=== PATIENT | male | born 1950 | race Caucasian/White ===

== ENCOUNTER 2017-06-26 11:54 | Inpatient (IN) | payer MEDICARE, MEDICAID ==
[~2017-06-26] VITALS: Ht 180.3 cm; Wt 98.1 kg
[~2017-06-26 11:54] MED LIST: ALBU8.5H8 BC; DIPH25CA61 PO; GUAI12003 PO; LEVO750T26 PO
[2017-06-26] MEDS ORDERED: SODIUM CHLORIDE FLUSH 10ML SYR IVF ONE (14:00)
[2017-06-26] MEDS ORDERED: CEFTAROLINE 600 MG in SODIUM CHLORIDE 0.9% 100 ML IV ONE (14:00)
[2017-06-26] MEDS ORDERED: ALBUTEROL/IPRATROPIUM 2.5MG/0.5MG, 3 ML NPPB ONE (14:00)
[2017-06-26] MEDS ORDERED: ALBUTEROL/IPRATROPIUM 2.5MG/0.5MG, 3 ML ONE (14:28)
[2017-06-26 14:31] LABS: HEMATOCRIT 43.8 % (39.2-51.8); HEMOGLOBIN 14.1 g/dL (13.7-18.0); WHITE BLOOD COUNT 13.2 x10^3/uL (3.4-10)
[2017-06-26 14:42] LABS: ASPARTATE AMINO TRANSFERASE 21 U/L (15-37); BLOOD UREA NITROGEN 27 mg/dL (7-18)
[2017-06-26] MEDS ORDERED: FUROSEMIDE 20 MG/2 ML IV ONE (15:00)
[2017-06-26] MEDS ORDERED: ENALAPRILAT 1.25 MG/ML, 2ML IV PRN (15:00)
[2017-06-26] MEDS ORDERED: ONDANSETRON 2MG/ML, 2ML IVPush PRN (15:00)
[2017-06-26] MEDS ORDERED: LABETALOL 5MG/ML, 20ML IVPush PRN (15:00)
[2017-06-26] MEDS ORDERED: ACETAMINOPHEN 325 MG TABLET PO PRN (15:00)
[2017-06-26] MEDS ORDERED: DOCUSATE 100 MG CAPSULE PO PRN (15:00)
[2017-06-26] MEDS ORDERED: hydrALAzine 20 MG/ML, 1ML IV PRN (15:00)
[2017-06-26] MEDS ORDERED: POLYETHYLENE GLYCOL 17 GM PACKET PO PRN (15:00)
[2017-06-26] MEDS ORDERED: morphine SULFATE 10 MG/ML, 1ML IVPush PRN (15:00)
[2017-06-26] MEDS ORDERED: VANCOMYCIN PER PHARMACY MC PRN (15:00)
[2017-06-26] MEDS ORDERED: TEMPLATE NON-FORMULARY MED. (Albuterol Sulfate (Proair Hfa) 2 PUFF(S)) BC PRN (15:00)
[2017-06-26 15:30] VITALS: BP 126/77
[2017-06-26 15:38] VITALS: BP 150/107
[2017-06-26] MEDS: NICOTINE 7 MG/24 HR PATCH.TD24 TD SCH (16:00)
[2017-06-26] MEDS ORDERED: PHARMACOKINETIC CONSULTATION MC ONE (16:00)
[2017-06-26] MEDS ORDERED: PHARMACOKINETIC MONITORING MC PRN (16:00)
[2017-06-26] MEDS: PIPERACILLIN/TAZO/PMX 3.375GM 50 ML IV SCH ×2 (16:13→22:01)
[2017-06-26] MEDS ORDERED: VANCOMYCIN 1,600 MG in SODIUM CHLORIDE 0.9% 250 ML IV SCH (16:30)
[2017-06-26] MEDS: NS + 20MEQ KCL 1,000 ML IV SCH (16:59)
[2017-06-26] MEDS ORDERED: ALBUTEROL SULFATE 2.5 MG/3 ML ONE (18:19)
[2017-06-26] MEDS: ALBUTEROL SULFATE 2.5 MG/3 ML NPPB SCH (20:00)
[2017-06-26 20:01] VITALS: BP 132/85
[2017-06-27 01:45] VITALS: BP 129/79
[2017-06-27] MEDS: PIPERACILLIN/TAZO/PMX 3.375GM 50 ML IV SCH ×4 (03:41→21:41)
[2017-06-27] MEDS: NS + 20MEQ KCL 1,000 ML IV SCH (03:42)
[2017-06-27 05:51] LABS: HEMATOCRIT 41.5 % (39.2-51.8); HEMOGLOBIN 13.3 g/dL (13.7-18.0); WHITE BLOOD COUNT 12.5 x10^3/uL (3.4-10)
[2017-06-27 06:03] LABS: BLOOD UREA NITROGEN 29 mg/dL (7-18)
[2017-06-27] MEDS: ALBUTEROL SULFATE 2.5 MG/3 ML NPPB SCH ×3 (07:35→19:49)
[2017-06-27 09:16] VITALS: BP 133/73
[2017-06-27] MEDS: HYDROcodone/APAP 5/325 TABLET PO PRN ×2 (09:22→20:36)
[2017-06-27] MEDS: SENNA/DOCUSATE TABLET PO SCH (09:22)
[2017-06-27] MEDS ORDERED: SODIUM CHLORIDE 0.9% 1,000 ML IV SCH (13:00)
[2017-06-27 13:18] VITALS: BP 139/77
[2017-06-27] MEDS ORDERED: GADOBUTROL 10 MMOL/10 ML PFS ONE (15:13)
[2017-06-27] MEDS: NICOTINE 7 MG/24 HR PATCH.TD24 TD SCH (16:00)
[2017-06-27] MEDS: ENOXAPARIN 40 MG/0.4 ML SQ SCH (16:09)
[2017-06-27 20:15] VITALS: BP 113/67
[2017-06-28 02:15] VITALS: BP 116/80
[2017-06-28] MEDS: PIPERACILLIN/TAZO/PMX 3.375GM 50 ML IV SCH ×4 (03:48→21:35)
[2017-06-28 05:35] LABS: HEMATOCRIT 39.4 % (39.2-51.8); HEMOGLOBIN 12.8 g/dL (13.7-18.0); WHITE BLOOD COUNT 9.9 x10^3/uL (3.4-10)
[2017-06-28 05:59] LABS: BLOOD UREA NITROGEN 23 mg/dL (7-18)
[2017-06-28] MEDS: ALBUTEROL SULFATE 2.5 MG/3 ML NPPB SCH ×2 (07:00→12:45)
[2017-06-28 07:30] VITALS: BP 143/91
[2017-06-28] MEDS: SENNA/DOCUSATE TABLET PO SCH (09:59)
[2017-06-28 13:48] VITALS: BP 146/99
[2017-06-28] MEDS: HYDROcodone/APAP 5/325 TABLET PO PRN ×2 (13:58→23:47)
[2017-06-28] MEDS ORDERED: DIPHENHYDRAMINE 25 MG CAPSULE ONE (14:11)
[2017-06-28] MEDS ORDERED: DIPHENHYDRAMINE 25 MG CAPSULE PO ONE (14:30)
[2017-06-28] MEDS: NICOTINE 7 MG/24 HR PATCH.TD24 TD SCH (16:00)
[2017-06-28] MEDS: ENOXAPARIN 40 MG/0.4 ML SQ SCH (16:18)
[2017-06-28 19:41] VITALS: BP 126/72
[2017-06-29 02:22] VITALS: BP 137/87
[2017-06-29] MEDS: PIPERACILLIN/TAZO/PMX 3.375GM 50 ML IV SCH ×4 (03:59→23:07)
[2017-06-29 05:52] LABS: BLOOD UREA NITROGEN 22 mg/dL (7-18)
[2017-06-29] MEDS: SODIUM CHLORIDE 0.9% 500 ML IV SCH ×4 (08:00→23:00)
[2017-06-29 08:48] VITALS: BP 147/91
[2017-06-29] MEDS ORDERED: ALBUTEROL SULFATE 2.5 MG/3 ML NPPB PRN (09:00)
[2017-06-29] MEDS: SENNA/DOCUSATE TABLET PO SCH (09:00)
[2017-06-29 14:07] VITALS: BP 133/77
[2017-06-29] MEDS: NICOTINE 7 MG/24 HR PATCH.TD24 TD SCH (15:40)
[2017-06-29] MEDS: ENOXAPARIN 40 MG/0.4 ML SQ SCH (15:41)
[2017-06-29 20:30] VITALS: BP 124/79
[2017-06-29] MEDS: HYDROcodone/APAP 5/325 TABLET PO PRN (22:48)
[2017-06-30 03:30] VITALS: BP 148/82
[2017-06-30] MEDS: SODIUM CHLORIDE 0.9% 500 ML IV SCH ×2 (04:00→09:00)
[2017-06-30] MEDS: PIPERACILLIN/TAZO/PMX 3.375GM 50 ML IV SCH ×4 (04:11→22:23)
[2017-06-30 05:46] LABS: BLOOD UREA NITROGEN 19 mg/dL (7-18)
[2017-06-30 06:36] VITALS: BP 113/78
[2017-06-30] MEDS: SENNA/DOCUSATE TABLET PO SCH (09:00)
[2017-06-30] MEDS: HYDROcodone/APAP 5/325 TABLET PO PRN ×2 (12:46→22:23)
[2017-06-30 12:59] VITALS: BP 137/82
[2017-06-30] MEDS: NICOTINE 7 MG/24 HR PATCH.TD24 TD SCH (16:00)
[2017-06-30] MEDS: ENOXAPARIN 40 MG/0.4 ML SQ SCH (16:09)
[2017-06-30 18:39] VITALS: BP 145/89
[2017-06-30] MEDS ORDERED: POLYETHYLENE GLYCOL 17 GM PACKET PO PRN (20:30)
[2017-06-30] MEDS ORDERED: morphine SULFATE 10 MG/ML, 1ML IVPush PRN (20:30)
[2017-06-30] MEDS ORDERED: hydrALAzine 20 MG/ML, 1ML IV PRN (20:30)
[2017-06-30] MEDS ORDERED: ENALAPRILAT 1.25 MG/ML, 2ML IV PRN (20:30)
[2017-06-30] MEDS ORDERED: DOCUSATE 100 MG CAPSULE PO PRN (20:30)
[2017-06-30] MEDS ORDERED: ACETAMINOPHEN 325 MG TABLET PO PRN (20:30)
[2017-06-30] MEDS ORDERED: LABETALOL 5MG/ML, 20ML IVPush PRN (20:30)
[2017-06-30] MEDS ORDERED: ONDANSETRON 2MG/ML, 2ML IVPush PRN (20:30)
[2017-07-01 01:36] VITALS: BP 119/79
[2017-07-01] MEDS: PIPERACILLIN/TAZO/PMX 3.375GM 50 ML IV SCH ×4 (04:08→22:26)
[2017-07-01 05:55] LABS: BLOOD UREA NITROGEN 21 mg/dL (7-18)
[2017-07-01] MEDS: SENNA/DOCUSATE TABLET PO SCH (08:23)
[2017-07-01 08:58] VITALS: BP 126/72
[2017-07-01 14:43] VITALS: BP 136/79
[2017-07-01] MEDS: ALBUTEROL SULFATE 2.5 MG/3 ML NPPB PRN (15:30)
[2017-07-01] MEDS: NICOTINE 7 MG/24 HR PATCH.TD24 TD SCH (16:00)
[2017-07-01] MEDS: ENOXAPARIN 40 MG/0.4 ML SQ SCH (16:44)
[2017-07-01 19:08] VITALS: BP 130/80
[2017-07-01] MEDS: HYDROcodone/APAP 5/325 TABLET PO PRN (22:27)
[2017-07-02 03:11] VITALS: BP 130/77
[2017-07-02] MEDS: PIPERACILLIN/TAZO/PMX 3.375GM 50 ML IV SCH ×2 (04:51→11:00)
[2017-07-02] MEDS: HYDROcodone/APAP 5/325 TABLET PO PRN (07:02)
[2017-07-02 08:04] VITALS: BP 126/74
[2017-07-02] MEDS: SENNA/DOCUSATE TABLET PO SCH (09:00)
[2017-07-02] MEDS ORDERED: SULF1TAB24 PO (11:01)
[2017-07-02] MEDS: ALBUTEROL SULFATE 2.5 MG/3 ML NPPB PRN (11:38)
== END 2017-07-02 12:16 | disposition home or self-care (01) | DRG 871 ==
LOC: ED 13:57 → EDIP 14:05 → 4NOR 15:31 → DCLOUNGE 07-02 12:10
PROVIDERS: ADMIT Family Medicine; ATTEND Family Medicine
DX: A41.9 Sepsis, unspecified organism (principal); N17.0 Acute kidney failure with tubular necrosis; L03.115 Cellulitis of right lower limb; E44.0 Moderate protein-calorie malnutrition; E86.0 Dehydration; F17.200 Nicotine dependence, unspecified, uncomplicated; I25.10 Atherosclerotic heart disease of native coronary artery without angina pectoris; J44.9 Chronic obstructive pulmonary disease, unspecified; L02.92 Furuncle, unspecified; Z95.5 Presence of coronary angioplasty implant and graft; Z68.30 Body mass index [BMI] 30.0-30.9, adult
CPT/HCPCS: 36415; 80048; 80053; 83605; 85025; 87040; 87070; 87077; 87186; 87205; 94640; A9585; J0712; J1650; J2543; J3370; J3480; J7613; J7620; J1940; J7040; J7050; Q0163

== ENCOUNTER 2017-11-11 20:02 | Inpatient (IN) | payer MEDICARE, MEDICAID ==
[~2017-11-11] VITALS: Ht 180.3 cm; Wt 94.2 kg
[~2017-11-11 20:02] MED LIST changes: +SULF1TAB24 PO
[2017-11-11] MEDS ORDERED: SODIUM CHLORIDE 0.9% 1,000 ML IV ONE (20:15)
[2017-11-11] MEDS ORDERED: ALBUTEROL/IPRATROPIUM 2.5MG/0.5MG, 3 ML ONE ×2 (20:19→20:27)
[2017-11-11] MEDS ORDERED: methylPREDNISolone SOD SUCC 125 MG/2 ML ONE (20:21)
[2017-11-11] MEDS ORDERED: SODIUM CHLORIDE FLUSH 10ML SYR IVF ONE (20:30)
[2017-11-11] MEDS ORDERED: ALBUTEROL/IPRATROPIUM 2.5MG/0.5MG, 3 ML NPPB SCH (20:30)
[2017-11-11] MEDS ORDERED: methylPREDNISolone SOD SUCC 125 MG/2 ML IVP ONE (20:30)
[2017-11-11] MEDS ORDERED: MAGNESIUM SULFATE PMX 2GM/50ML 50 ML IVPB ONE (20:30)
[2017-11-11 20:48] LABS: MEAN CORPUSCULAR HEMOGLOBIN 28.5 pg (27.5-34.5); MEAN CORPUSCULAR HGB CONC 32.4 g/dL (33.2-36.2); PLATELET COUNT 335 x10^3/uL (130-400); RED BLOOD COUNT 4.87 x10^6/uL (4.38-5.82); RED CELL DISTRIBUTION WIDTH 14.9 % (9.4-14.8)
[2017-11-11 20:57] LABS: ALANINE AMINOTRANSFERASE 91 U/L (12-78); ALBUMIN 3.6 g/dL (3.4-5.0); ANION GAP 7 mmol/L (5-15); CALCIUM 9.1 mg/dL (8.5-10.1); CHLORIDE 102 mmol/L (98-107); CREATININE 1.72 mg/dL (0.7-1.3)
[2017-11-11 21:00] LABS: INTERNATIONAL NORMALIZED RATIO 1.03 (0.93-1.1); PROTHROMBIN TIME 10.7 Seconds (9.6-11.5)
[2017-11-11 21:01] LABS: ALKALINE PHOSPHATASE 92 U/L (45-117); BILIRUBIN,TOTAL 0.4 mg/dL (0.2-1.0); TOTAL PROTEIN 8.3 g/dL (6.4-8.2); TROPONIN I 0.068 ng/mL (0.000-0.045)
[2017-11-11] MEDS ORDERED: CEFTRIAXONE PMX 1GM/50ML 50 ML IVPB ONE (21:30)
[2017-11-11] MEDS ORDERED: SODIUM CHLORIDE FLUSH 10ML SYR IVF PRN (21:30)
[2017-11-11] MEDS ORDERED: AZITHROMYCIN 500 MG in SODIUM CHLORIDE 0.9% 250 ML IVPB ONE (21:30)
[2017-11-11 21:35] LABS: BASOPHILS # (AUTO) 0.18 x10^3/uL (0-0.1); BASOPHILS % (AUTO) 1 % (0-1); EOSINOPHILS % (AUTO) 0 % (1-7); LYMPHOCYTES # (AUTO) 1.29 x10^3/uL (1-3.4); LYMPHOCYTES % (AUTO) 5 % (22-44); MD SCAN; MONOCYTES # (AUTO) 2.37 x10^3/uL (0.2-0.8); MONOCYTES % (AUTO) 10 % (2-9); NEUTROPHILS # (AUTO) 20.64 x10^3/uL (1.8-6.8); NEUTROPHILS % (AUTO) 84 % (42-75)
[2017-11-11] MEDS ORDERED: ALBUTEROL 0.5%, 20ML ONE (21:35)
[2017-11-11] MEDS ORDERED: CEFTRIAXONE PMX 1GM/50ML 50 ML ONE (21:48)
[2017-11-11] MEDS ORDERED: GUAIFENESIN/DM 200-20MG, 10ML UDC PO PRN (22:00)
[2017-11-11] MEDS ORDERED: hydrALAzine 20 MG/ML, 1ML IVPush PRN (22:00)
[2017-11-11] MEDS ORDERED: ACETAMINOPHEN 325 MG TABLET PO PRN (22:00)
[2017-11-11] MEDS ORDERED: ONDANSETRON 2MG/ML, 2ML IVPush PRN (22:00)
[2017-11-11] MEDS ORDERED: methylPREDNISolone SOD SUCC 40 MG/ML IVPush SCH (22:00)
[2017-11-11 22:14] LABS: RAPID INFLUENZA A Negative (Negative); RAPID INFLUENZA B Negative (Negative)
[2017-11-11] MEDS: CEFTRIAXONE PMX 1GM/50ML 50 ML IV SCH (22:24)
[2017-11-11] MEDS: ALBUTEROL/IPRATROPIUM 2.5MG/0.5MG, 3 ML NPPB SCH (22:30)
[2017-11-11] MEDS ORDERED: ALBUTEROL/IPRATROPIUM 2.5MG/0.5MG, 3 ML NPPB PRN (22:30)
[2017-11-11] MEDS: AZITHROMYCIN 500 MG in SODIUM CHLORIDE 0.9% 250 ML IV SCH (22:58)
[2017-11-11] MEDS ORDERED: NICOTINE 21 MG/24 HR PATCH.TD24 ONE (23:21)
[2017-11-11] MEDS ORDERED: ENOXAPARIN 40 MG/0.4 ML ONE (23:22)
[2017-11-11] MEDS: NICOTINE 21 MG/24 HR PATCH.TD24 TD SCH (23:25)
[2017-11-11] MEDS: ENOXAPARIN 40 MG/0.4 ML SQ SCH (23:25)
[2017-11-12] MEDS: SODIUM CHLORIDE 0.9% 1,000 ML IV SCH ×2 (02:55→06:34)
[2017-11-12] MEDS ORDERED: ALBUTEROL/IPRATROPIUM 2.5MG/0.5MG, 3 ML ONE (03:02)
[2017-11-12 04:32] LABS: MEAN CORPUSCULAR HEMOGLOBIN 29.2 pg (27.5-34.5); MEAN CORPUSCULAR HGB CONC 32.8 g/dL (33.2-36.2); MEAN CORPUSCULAR VOLUME 89.1 fL (81-97); MEAN PLATELET VOLUME 8.9 fL (7.4-10.4); PLATELET COUNT 321 x10^3/uL (130-400); RED BLOOD COUNT 4.54 x10^6/uL (4.38-5.82); RED CELL DISTRIBUTION WIDTH 15.1 % (9.4-14.8)
[2017-11-12 04:50] LABS: TROPONIN I 0.043 ng/mL (0.000-0.045)
[2017-11-12 04:51] LABS: CHLORIDE 105 mmol/L (98-107)
[2017-11-12 05:00] LABS: ANION GAP 8 mmol/L (5-15); CALCIUM 9.1 mg/dL (8.5-10.1); CREATININE 1.61 mg/dL (0.7-1.3)
[2017-11-12 05:44] LABS: BASOPHILS # (AUTO) 0.05 x10^3/uL (0-0.1); BASOPHILS % (AUTO) 0 % (0-1); EOSINOPHILS % (AUTO) 0 % (1-7); LYMPHOCYTES # (AUTO) 0.49 x10^3/uL (1-3.4); LYMPHOCYTES % (AUTO) 2 % (22-44); MD SCAN; MONOCYTES # (AUTO) 0.51 x10^3/uL (0.2-0.8); MONOCYTES % (AUTO) 2 % (2-9); NEUTROPHILS # (AUTO) 23.19 x10^3/uL (1.8-6.8); NEUTROPHILS % (AUTO) 96 % (42-75)
[2017-11-12 06:17] VITALS: BP 150/100
[2017-11-12] MEDS: ALBUTEROL/IPRATROPIUM 2.5MG/0.5MG, 3 ML NPPB SCH ×5 (07:25→22:30)
[2017-11-12] MEDS: methylPREDNISolone SOD SUCC 125 MG/2 ML IVPush SCH ×3 (11:06→22:12)
[2017-11-12] MEDS ORDERED: POLYETHYLENE GLYCOL 17 GM PACKET PO PRN (14:30)
[2017-11-12] MEDS ORDERED: BISACODYL 10 MG SUPP PR PRN (14:30)
[2017-11-12] MEDS ORDERED: MAGNESIUM CITRATE 300ML ORAL SOL PO PRN ×2 (14:30)
[2017-11-12 20:34] VITALS: BP 163/98
[2017-11-12] MEDS: NICOTINE 21 MG/24 HR PATCH.TD24 TD SCH (22:00)
[2017-11-12] MEDS: CEFTRIAXONE PMX 1GM/50ML 50 ML IV SCH (22:12)
[2017-11-12] MEDS: ENOXAPARIN 40 MG/0.4 ML SQ SCH (22:13)
[2017-11-12] MEDS: AZITHROMYCIN 500 MG in SODIUM CHLORIDE 0.9% 250 ML IV SCH (22:58)
[2017-11-13] MEDS: ALBUTEROL/IPRATROPIUM 2.5MG/0.5MG, 3 ML NPPB SCH ×5 (00:27→19:27)
[2017-11-13 02:46] VITALS: BP 138/90
[2017-11-13] MEDS: methylPREDNISolone SOD SUCC 125 MG/2 ML IVPush SCH ×4 (04:20→22:41)
[2017-11-13 06:04] LABS: BASOPHILS % (AUTO) 0 % (0-1); EOSINOPHILS % (AUTO) 0 % (1-7); LYMPHOCYTES # (AUTO) 0.44 x10^3/uL (1-3.4); LYMPHOCYTES % (AUTO) 3 % (22-44); MD NO; MEAN CORPUSCULAR HEMOGLOBIN 28.6 pg (27.5-34.5); MEAN CORPUSCULAR HGB CONC 32.1 g/dL (33.2-36.2); MEAN CORPUSCULAR VOLUME 89.1 fL (81-97); MEAN PLATELET VOLUME 9.3 fL (7.4-10.4); MONOCYTES # (AUTO) 0.59 x10^3/uL (0.2-0.8); MONOCYTES % (AUTO) 4 % (2-9); NEUTROPHILS # (AUTO) 14.68 x10^3/uL (1.8-6.8); NEUTROPHILS % (AUTO) 93 % (42-75); PLATELET COUNT 287 x10^3/uL (130-400); RED BLOOD COUNT 4.24 x10^6/uL (4.38-5.82); RED CELL DISTRIBUTION WIDTH 15.3 % (9.4-14.8)
[2017-11-13 06:11] LABS: CHLORIDE 103 mmol/L (98-107)
[2017-11-13 06:25] LABS: ALANINE AMINOTRANSFERASE 98 U/L (12-78); ALBUMIN 3.1 g/dL (3.4-5.0); ALKALINE PHOSPHATASE 88 U/L (45-117); ANION GAP 5 mmol/L (5-15); BILIRUBIN,TOTAL 0.2 mg/dL (0.2-1.0); CALCIUM 9.1 mg/dL (8.5-10.1); CREATININE 1.45 mg/dL (0.7-1.3); TOTAL PROTEIN 7.4 g/dL (6.4-8.2)
[2017-11-13 08:18] VITALS: BP 143/97
[2017-11-13 13:32] VITALS: BP 159/98
[2017-11-13 20:00] VITALS: BP 140/70
[2017-11-13] MEDS: NICOTINE 21 MG/24 HR PATCH.TD24 TD SCH (22:00)
[2017-11-13] MEDS: CEFTRIAXONE PMX 1GM/50ML 50 ML IV SCH (22:40)
[2017-11-13] MEDS: ENOXAPARIN 40 MG/0.4 ML SQ SCH (22:41)
[2017-11-13] MEDS: AZITHROMYCIN 500 MG in SODIUM CHLORIDE 0.9% 250 ML IV SCH (23:32)
[2017-11-13] MEDS: TEMAZEPAM 15 MG CAPSULE PO PRN (23:36)
[2017-11-14 02:00] VITALS: BP 140/80
[2017-11-14] MEDS: methylPREDNISolone SOD SUCC 125 MG/2 ML IVPush SCH ×4 (04:59→22:27)
[2017-11-14 07:47] VITALS: BP 152/87
[2017-11-14] MEDS: ALBUTEROL/IPRATROPIUM 2.5MG/0.5MG, 3 ML NPPB SCH ×4 (08:10→20:00)
[2017-11-14 14:30] VITALS: BP 148/87
[2017-11-14] MEDS ORDERED: GADOBUTROL 10 MMOL/10 ML PFS ONE (19:07)
[2017-11-14 20:19] VITALS: BP 144/92
[2017-11-14] MEDS: NICOTINE 21 MG/24 HR PATCH.TD24 TD SCH (22:00)
[2017-11-14] MEDS: AZITHROMYCIN 500 MG in SODIUM CHLORIDE 0.9% 250 ML IV SCH (22:28)
[2017-11-14] MEDS: ENOXAPARIN 40 MG/0.4 ML SQ SCH (22:28)
[2017-11-14] MEDS: TEMAZEPAM 15 MG CAPSULE PO PRN (23:10)
[2017-11-14] MEDS: CEFTRIAXONE 1,000 MG in DEXTROSE 5% 50 ML IV SCH (23:11)
[2017-11-15 01:15] VITALS: BP 128/89
[2017-11-15] MEDS: ALBUTEROL/IPRATROPIUM 2.5MG/0.5MG, 3 ML NPPB SCH ×5 (01:37→20:00)
[2017-11-15] MEDS: methylPREDNISolone SOD SUCC 125 MG/2 ML IVPush SCH ×3 (03:55→16:02)
[2017-11-15 08:30] VITALS: BP 148/93
[2017-11-15 14:30] VITALS: BP 145/82
[2017-11-15 20:53] VITALS: BP 143/89
[2017-11-15] MEDS: NICOTINE 21 MG/24 HR PATCH.TD24 TD SCH (21:07)
[2017-11-15] MEDS: ENOXAPARIN 40 MG/0.4 ML SQ SCH (21:16)
[2017-11-15] MEDS: AZITHROMYCIN 500 MG in SODIUM CHLORIDE 0.9% 250 ML IV SCH (21:16)
[2017-11-15] MEDS: TEMAZEPAM 15 MG CAPSULE PO PRN (22:34)
[2017-11-15] MEDS: CEFTRIAXONE 1,000 MG in DEXTROSE 5% 50 ML IV SCH (22:34)
[2017-11-16 02:42] VITALS: BP 163/81
[2017-11-16] MEDS: ALBUTEROL/IPRATROPIUM 2.5MG/0.5MG, 3 ML NPPB SCH ×5 (08:23→20:14)
[2017-11-16 08:27] VITALS: BP 142/81
[2017-11-16 13:50] VITALS: BP 142/89
[2017-11-16 20:38] VITALS: BP 170/97
[2017-11-16] MEDS: NICOTINE 21 MG/24 HR PATCH.TD24 TD SCH (22:00)
[2017-11-16] MEDS: AZITHROMYCIN 500 MG in SODIUM CHLORIDE 0.9% 250 ML IV SCH (22:28)
[2017-11-16] MEDS: ENOXAPARIN 40 MG/0.4 ML SQ SCH (22:28)
[2017-11-16] MEDS: CEFTRIAXONE 1,000 MG in DEXTROSE 5% 50 ML IV SCH (22:28)
[2017-11-16] MEDS: TEMAZEPAM 15 MG CAPSULE PO PRN (22:28)
[2017-11-17 02:14] VITALS: BP 139/87
[2017-11-17] MEDS ORDERED: FLUT1BLS INH (07:47)
[2017-11-17] MEDS ORDERED: IPRA3AMP NPPB (07:47)
[2017-11-17] MEDS ORDERED: PRED10TA PO (07:47)
[2017-11-17] MEDS ORDERED: AZIT500T5 PO (07:47)
[2017-11-17] MEDS ORDERED: CEFD300C37 PO (07:47)
[2017-11-17] MEDS ORDERED: TIOT18CA INH (07:47)
[2017-11-17] MEDS ORDERED: NICO-487 TD (07:47)
[2017-11-17 08:00] VITALS: BP 138/69
[2017-11-17] MEDS: ALBUTEROL/IPRATROPIUM 2.5MG/0.5MG, 3 ML NPPB SCH ×2 (08:05→11:10)
[2017-11-17] MEDS ORDERED: PNEUMOCOCCAL 23 VACCINE IM-VACC ONE (10:00)
[2017-11-17] MEDS ORDERED: FLU VACC QS2017-18 (36MOS+) UP/PF 0.5 ML IM-VACC ONE (10:30)
== END 2017-11-17 13:15 | disposition home or self-care (01) | DRG 871 ==
LOC: ED 21:37 → SUATTDRO 21:57 → EDIP 22:14 → CCU 11-12 06:02 → 4EST 11-12 20:16
PROVIDERS: ADMIT Internal Medicine; ATTEND Internal Medicine
PROC: 5A09357 Assistance with Respiratory Ventilation, Less than 24 Consecutive Hours, Continuous Positive Airway Pressure (ICD-10-PCS; principal; 2017-11-11)
DX: A41.9 Sepsis, unspecified organism (principal); J18.9 Pneumonia, unspecified organism; J96.01 Acute respiratory failure with hypoxia; I21.A1 Myocardial infarction type 2; I50.41 Acute combined systolic (congestive) and diastolic (congestive) heart failure; N17.0 Acute kidney failure with tubular necrosis; I13.0 Hypertensive heart and chronic kidney disease with heart failure and stage 1 through stage 4 chronic kidney disease, or unspecified chronic kidney disease; J44.1 Chronic obstructive pulmonary disease with (acute) exacerbation; J44.0 Chronic obstructive pulmonary disease with (acute) lower respiratory infection; I24.8 Other forms of acute ischemic heart disease; K75.9 Inflammatory liver disease, unspecified; F17.210 Nicotine dependence, cigarettes, uncomplicated; F12.90 Cannabis use, unspecified, uncomplicated; I25.10 Atherosclerotic heart disease of native coronary artery without angina pectoris; N18.9 Chronic kidney disease, unspecified; Z23 Encounter for immunization; Z71.6 Tobacco abuse counseling
CPT/HCPCS: 36415; 36600; 70553; 71045; 80048; 80053; 82803; 83605; 83735; 83880; 84145; 84484; 85025; 85610; 85730; 87040; 87081; 87400; 90686; 90732; 93005; 93306; 94640; 94644; 94660; 96365; 96367; 96375; A9585; J0456; J0696; J1650; J2405; J7620; J2930; J3475; J7030; J7050; J7512

== ENCOUNTER 2018-04-22 17:16 | Emergency (ER) | payer MEDICARE, MEDICAID ==
[~2018-04-22] VITALS: Ht 180.3 cm; Wt 93.9 kg
[~2018-04-22 17:16] MED LIST changes: +AZIT500T5 PO; +CEFD300C37 PO; +FLUT1BLS INH; +IPRA3AMP NPPB; +NICO-487 TD; +PRED10TA PO; +TIOT18CA INH
[2018-04-22] MEDS ORDERED: ALBUTEROL/IPRATROPIUM 2.5MG/0.5MG, 3 ML NPPB ONE (17:30)
[2018-04-22] MEDS ORDERED: FAMOTIDINE 20 MG TABLET PO ONE (17:30)
[2018-04-22] MEDS ORDERED: DIPHENHYDRAMINE 25 MG CAPSULE PO ONE (17:30)
[2018-04-22 17:48] LABS: BASOPHILS # (AUTO) 0.01 x10^3/uL (0-0.1); BASOPHILS % (AUTO) 0 % (0-1); EOSINOPHILS # (AUTO) 0.14 x10^3/uL (0-0.4); EOSINOPHILS % (AUTO) 1 % (1-7); LYMPHOCYTES # (AUTO) 1.46 x10^3/uL (1-3.4); LYMPHOCYTES % (AUTO) 11 % (22-44); MD NO; MEAN CORPUSCULAR HEMOGLOBIN 28.9 pg (27.5-34.5); MEAN CORPUSCULAR HGB CONC 32.7 g/dL (33.2-36.2); MEAN CORPUSCULAR VOLUME 88.4 fL (81-97); MEAN PLATELET VOLUME 8.4 fL (7.4-10.4); MONOCYTES # (AUTO) 0.58 x10^3/uL (0.2-0.8); MONOCYTES % (AUTO) 4 % (2-9); NEUTROPHILS % (AUTO) 84 % (42-75); PLATELET COUNT 333 x10^3/uL (130-400); RED BLOOD COUNT 5.36 x10^6/uL (4.38-5.82); RED CELL DISTRIBUTION WIDTH 17.3 % (9.4-14.8)
[2018-04-22] MEDS ORDERED: ALBUTEROL/IPRATROPIUM 2.5MG/0.5MG, 3 ML ONE (17:57)
[2018-04-22 17:58] LABS: ALBUMIN 3.8 g/dL (3.4-5.0); ANION GAP 3 mmol/L (5-15); CALCIUM 9.3 mg/dL (8.5-10.1); CHLORIDE 106 mmol/L (98-107); CREATININE 1.29 mg/dL (0.7-1.3)
[2018-04-22 18:02] LABS: TROPONIN I < 0.015 ng/mL (0.000-0.045)
[2018-04-22 19:03] VITALS: BP 133/68
== END 2018-04-22 19:05 | disposition home or self-care (01) ==
LOC: ED 18:40
DX: J96.01 Acute respiratory failure with hypoxia (principal); J44.1 Chronic obstructive pulmonary disease with (acute) exacerbation; I11.0 Hypertensive heart disease with heart failure; I50.9 Heart failure, unspecified; I25.10 Atherosclerotic heart disease of native coronary artery without angina pectoris; F17.200 Nicotine dependence, unspecified, uncomplicated
CPT/HCPCS: 36415; 71046; 80048; 82040; 84484; 85025; 93005; 94640; 99285; J7620

== ENCOUNTER 2018-09-15 13:11 | Emergency (ER) | payer MEDICARE, MEDICAID ==
[~2018-09-15] VITALS: Ht 180.3 cm; Wt 98.6 kg
[~2018-09-15 13:11] MED LIST changes: -IPRA3AMP NPPB; +IPRA3AMP30 NPPB
[2018-09-15 13:13] VITALS: BP 177/100
[2018-09-15] MEDS ORDERED: ALBUTEROL/IPRATROPIUM 2.5MG/0.5MG, 3 ML NPPB ONE (14:00)
== END 2018-09-15 14:46 | disposition home or self-care (01) ==
LOC: ED 14:30
DX: J44.1 Chronic obstructive pulmonary disease with (acute) exacerbation (principal); I50.9 Heart failure, unspecified; I11.0 Hypertensive heart disease with heart failure
CPT/HCPCS: 71046; 94640; 99284; J7512; J7620

== ENCOUNTER 2020-04-23 19:51 | Emergency (ER) | payer MEDICARE, MEDICAID ==
[~2020-04-23] VITALS: Ht 180.3 cm; Wt 90.3 kg
[~2020-04-23 19:51] MED LIST changes: +AZIT500T10 PO; -AZIT500T5 PO
[2020-04-23 19:52] VITALS: BP 136/91
[2020-04-23 20:52] LABS: BASOPHILS # (AUTO) 0.08 x10^3/uL (0-0.1); BASOPHILS % (AUTO) 1 % (0-1); EOSINOPHILS # (AUTO) 0.06 x10^3/uL (0-0.4); EOSINOPHILS % (AUTO) 1 % (1-7); LYMPHOCYTES # (AUTO) 1.39 x10^3/uL (1-3.4); LYMPHOCYTES % (AUTO) 14 % (22-44); MD NO; MEAN CORPUSCULAR HEMOGLOBIN 26.4 pg (27.5-34.5); MEAN CORPUSCULAR HGB CONC 32.2 g/dL (33.2-36.2); MEAN PLATELET VOLUME 7.4 fL (7.4-10.4); MONOCYTES # (AUTO) 0.76 x10^3/uL (0.2-0.8); MONOCYTES % (AUTO) 7 % (2-9); NEUTROPHILS # (AUTO) 7.89 x10^3/uL (1.8-6.8); NEUTROPHILS % (AUTO) 78 % (42-75); PLATELET COUNT 627 x10^3/uL (130-400); RED BLOOD COUNT 4.21 x10^6/uL (4.38-5.82); RED CELL DISTRIBUTION WIDTH 15.1 % (9.4-14.8)
[2020-04-23 20:59] LABS: ALANINE AMINOTRANSFERASE 19 U/L (12-78); ALBUMIN 2.5 g/dL (3.4-5.0); ANION GAP 6 mmol/L (5-15); CHLORIDE 107 mmol/L (98-107); CREATININE 1.09 mg/dL (0.7-1.3)
--- NOTE | 2020-04-23 21:00 | NUR ---
Pt informed we still needed a urine sample from him. Pt stated "I can't. I just can't." Will continue to encourage pt to provide urine.
[2020-04-23 21:01] LABS: ALKALINE PHOSPHATASE 333 U/L (45-117); BILIRUBIN,TOTAL 0.3 mg/dL (0.2-1.0); TOTAL PROTEIN 7.9 g/dL (6.4-8.2)
[2020-04-23] MEDS ORDERED: MAGNESIUM CITRATE 300ML ORAL SOL ONE (21:09)
[2020-04-23] MEDS ORDERED: MAGNESIUM CITRATE 300ML ORAL SOL PO ONE (21:30)
== END 2020-04-23 21:20 | disposition home or self-care (01) ==
LOC: ED 21:10
DX: K29.00 Acute gastritis without bleeding (principal); I11.0 Hypertensive heart disease with heart failure; I50.9 Heart failure, unspecified; J43.9 Emphysema, unspecified; I25.10 Atherosclerotic heart disease of native coronary artery without angina pectoris; F17.200 Nicotine dependence, unspecified, uncomplicated; Z90.89 Acquired absence of other organs; Z98.61 Coronary angioplasty status
CPT/HCPCS: 36415; 74022; 80053; 83690; 85025; 99284